=== PATIENT | female | born 1960 | race Caucasian/White ===

== ENCOUNTER → 2025-05-19 12:29 | Outpatient (REF) | payer OTHER, SELFPAY | LOC: RCS 12:29 | PROVIDERS: ATTENDING PHYSICIAN Physician Assistant Medical; FAMILY PHYSICIAN Family Medicine | DX: I47.9 Paroxysmal tachycardia, unspecified (principal); Z86.73 Personal history of transient ischemic attack (TIA), and cerebral infarction without residual deficits; I10 Essential (primary) hypertension | CPT/HCPCS: 93306 ==

== ENCOUNTER → 2025-06-26 12:15 | Outpatient (REF) | payer OTHER, SELFPAY | LOC: DHSLP 12:15 | PROVIDERS: ATTENDING PHYSICIAN Internal Medicine Cardiovascular Disease; FAMILY PHYSICIAN Family Medicine | DX: G47.33 Obstructive sleep apnea (adult) (pediatric) (principal); R09.02 Hypoxemia | CPT/HCPCS: 95800 ==